=== PATIENT | male | born 1970 ===

== ENCOUNTER 2016-07-03 14:35 | Emergency (ER) | payer OTHER ==
[2016-07-03] MEDS ORDERED: ONDANSETRON 4 MG/2ML 2 ML VIAL ONE (15:19)
[2016-07-03] MEDS ORDERED: LACTATED RINGERS 1,000 ML ONE (15:19)
[2016-07-03 15:45] LABS: ABSOLUTE NEUTROPHIL COUNT 8.3 K/mm3 (1.8-7.7); BASO % 0.3 % (0.2-1.0); EOS # 1.1 (0.0-0.5); EOS % 9.1 % (0.9-2.9); HEMATOCRIT 49.4 % (32.0-52.0); HEMOGLOBIN 16.3 gm/l (14.0-18.0); IMM NEUT% 0.3 % (0-1); LYMPH # 1.7 (1.0-4.8); LYMPH % 14.1 % (15-45); MEAN CELL VOLUME 89.2 fl (80.0-94.0); MEAN CORPUSCULAR HEMOGLOBIN 29.4 pg (27.0-31.0); MEAN PLATELET VOLUME 11.4 fl (7.4-10.4); MONO # 0.7 (0.0-0.8); MONO % 5.6 % (4-12); NEUT % 70.6 % (43-75); PLATELET COUNT 172 K/mm3 (130-400); RED CELL DISTRIBUTION WIDTH 12.4 % (11.5-14.5)
[2016-07-03 16:21] LABS: ALB/GLOB RATIO 1.7 (>1.0); ALBUMIN 4.9 gm/dL (3.5-5.7); CALCIUM 9.7 mg/dL (8.6-10.3); MAGNESIUM 2.3 mg/dL (1.9-2.7)
--- NOTE | 2016-07-03 18:07 | CT ---
Exam Type: ABD/PELVIS W/O CON Date and Time: 07/03/2016 4:58 PM Clinical information: Diffuse abdominal pain with nausea and vomiting for 10 days. Comparison: None Procedure: Imaging device: [employer] [address] scanner 1 mm axial images were obtained through the abdomen and pelvis. Stacked reconstructed 3, 4 and 5 mm images were photographed in the axial coronal and sagittal planes. No oral contrast was utilized for this examination. Exam: Without intravenous contrast. FINDINGS: Lung bases:The visualized lung bases appear to be appropriate with no mass, effusion or consolidation visualized. Liver: the liver is homogeneous with no discrete abnormality visualized. No definite findings of biliary dilatation are observed. Spleen: The spleen is homogeneous and does not appear to be enlarged. Gallbladder: Surgically absent. Pancreas: Normal without enlargement or evidence of adjacent inflammatory changes. Adrenal glands: Normal without enlargement or evidence of adjacent inflammatory changes. Abdominal aorta: Minimal atherosclerotic vascular calcification is seen. No focal aneurysm is visualized. Kidneys: The kidneys appear to be symmetric in size with no perinephric inflammatory changes are identified. No current findings of hydronephrosis are seen. No evidence of an intrarenal or intraureteral calculus is visualized. Bowel structures: The visualized bowel is of normal caliber without evidence of dilatation or obstruction. No free fluid or mesenteric inflammatory changes are identified. Appendix: The appendix is well-visualized and appears to be of normal caliber. No periappendiceal inflammatory changes or CT findings of appendicitis are currently observed. Bladder: The bladder is of normal contour. No wall thickening or significant distention is observed. Hernia: Bilateral fat filled inguinal hernias are identified. There is also a small umbilical hernia present. Adenopathy: No significant enlarged adenopathy is visualized. Osseous structures: There is incidental note made of a small sclerotic focus within the left sacral ala which may reflect a small bone island. No other osseous abnormalities are visualized. Pelvic structures: No discrete pelvic abnormalities are visualized in this examination. IMPRESSION: 1. A normal appearance of the appendix without current CT evidence of appendicitis. 2. No evidence of an intrarenal or intraureteral calculus. 3. Prior cholecystectomy. 4. An umbilical and bilateral fat filled inguinal hernias. 5. A probable bone island within the left portion of the sacrum.
[2016-07-03 18:48] LABS: SPECIFIC GRAVITY 1.025 (1.001-1.030); URINE BILIRUBIN NEGATIVE (NEGATIVE); URINE BLOOD NEGATIVE (NEGATIVE); URINE GLUCOSE (UA) 2+ (NEGATIVE); URINE LEUKOCYTE ESTERASE TRACE (NEGATIVE); URINE NITRITE NEGATIVE (NEGATIVE); URINE PROTEIN NEGATIVE (NEGATIVE); URINE UROBILINOGEN NORMAL (0-1 mg/dl)
[2016-07-03 18:58] LABS: URINE APPEARANCE CLEAR; URINE COLOR DARK YELLOW
[2016-07-03 18:59] LABS: URINE BACTERIA RARE; URINE EPITHELIAL CELLS 0 /hpf; URINE RBC 0 /hpf; URINE WBC 0-2 /hpf
[2016-07-03] MEDS ORDERED: METOCLOPRAMIDE HCL 5 MG/ML 2ML VIAL ONE (19:15)
== END 2016-07-03 19:56 | disposition home or self-care (01) ==
LOC: ED 14:35
DX: R10.84 Generalized abdominal pain (principal); R11.2 Nausea with vomiting, unspecified; R19.7 Diarrhea, unspecified; K31.84 Gastroparesis; E11.9 Type 2 diabetes mellitus without complications; Z79.4 Long term (current) use of insulin
CPT/HCPCS: 83690; 85025; 87086; 80053; 83735; 81001; 74176; 96375; 99283 ×2; 96374; J2765; J2405; J7120